=== PATIENT | male | born 1985 ===

== ENCOUNTER 2021-03-12 20:41 | Emergency (ER) ==
[2021-03-12] MEDS ORDERED: Ketorolac Tromethamine 30 MG/ML VIAL ONE (22:18)
[2021-03-12] MEDS ORDERED: Diazepam 10 MG/2 ML SYRINGE ONE (22:19)
[2021-03-12] MEDS ORDERED: Morphine 1 ML ONE (23:18)
== END 2021-03-13 00:11 | disposition home or self-care (01) ==
LOC: CSHERS 20:41
DX: M54.31 Sciatica, right side (principal)
CPT/HCPCS: 96372; 99283; J1885; J2270; J3360